=== PATIENT | male | born 1985 | race African-American/Black ===

== ENCOUNTER 2020-04-16 12:28 | Inpatient (IN) | payer OTHER ==
[2020-04-16] MEDS ORDERED: morphine SULFATE 4 MG/ML VIAL IVPUSH ONE (12:33)
[2020-04-16] MEDS ORDERED: SODIUM CHLORIDE 1,000 ML IV STA (12:33)
--- NOTE | 2020-04-16 12:33 | PDOC ---
Rapid Medical Evaluation Time Seen by Provider: 04/16/20 12:31 Medical Evaluation: 04/16/20 12:31 I have performed a brief in-person evaluation of this patient. CC: sent by PMD to r/o appendicitis PE: RLQ tenderness. No rebound. Orders: labs, urine, CTAP Patient will proceed to ED for further evaluation. Discharge Disposition - Diagnosis RLQ abdominal pain - Referrals Referrals: Marlo Dutton MD [Primary Care Provider] - - Patient Instructions - Post Discharge Activity
[2020-04-16] MEDS ORDERED: ONDANSETRON 4 MG/2 ML VIAL IVPUSH ONE (12:34)
--- NOTE | 2020-04-16 13:38 | PDOC ---
History of Present Illness - General Chief Complaint: Pain Stated Complaint: Pain Time Seen by Provider: 04/16/20 12:31 History Source: Patient Exam Limitations: Clinical Condition - History of Present Illness Travel History: No Initial Comments: 04/16/20 13:33 Patient with no significant past medical history present with complaint of one- week history of intermittent epigastric and periumbilical pain now worsened to right lower abdomen since yesterday. Patient described pain as cramping pain. Patient reportedly had no vomiting for 2 days which he took magnesium citrate yesterday which he had 3 bowel movement yesterday. Denies nausea, vomiting, fever, chills, diarrhea. Denies history of abdominal surgery. Denies blood or mucus in stool. Patient has not taken anything as of symptoms. Timing/Duration: reports: getting worse, other (1 week) Past History - Medical History Allergies/Adverse Reactions: Allergies Allergy/AdvReac Type Severity Reaction Status Date / Time No Known Allergies Allergy Unverified 04/16/20 12:36 Home Medications: Ambulatory Orders NK [No Known Home Medication] 04/16/20 COPD: No - Psycho-Social/Smoking History Smoking History: Never smoked Have you smoked in the past 12 months: No Information on smoking cessation initiated: No - Substance Abuse Hx (Audit-C & DAST Scrn) How often the patient has a drink containing alcohol: Never Score: In Men: 4 or > Positive; In Women: 3 or > Positive: 0 Screen Result (Pos requires Nsg. Audit-10AR): Negative In the last yr the pt used illegal drug/Rx for NonMed reason: No Score: Yes response is considered Positive: 0 Screen Result (Positive result requires Nsg. DAST-10): Negative Review of Systems - Review of Systems Able to Perform ROS?: Yes Is the patient limited Citizen Of [place] proficient: No Constitutional: No: Chills, Fever HEENTM: No: Symptoms Reported, See HPI, Eye Pain, Blurred Vision, Tearing, Recent change in vision, Double Vision, Cataracts, Ear Pain, Ocular Prothesis, Ear Discharge, Nose Pain, Nose Congestion, Tinnitus, Nose Bleeding, Hearing Loss, Throat Pain, Throat Swelling, Mouth Pain, Dental Problems, Difficulty Swallowing, Mouth Swelling, Other Respiratory: No: Symptoms reported, See HPI, Cough, Orthopnea, Shortness of Breath, SOB with Exertion, SOB at Rest, Stridor, Wheezing, Productive cough, Hemoptysis, Other Cardiac (ROS): No: Symptoms Reported, See HPI, Chest Pain, Edema, Irregular Heart Rate, Lightheadedness, Palpitations, Syncope, Chest Tightness, Other ABD/GI: Yes: Symptoms Reported, See HPI, Abdominal cramping (Right lower abdominal pain). No: Abdominal Distended, Blood Streaked Bowels, Constipated, D iarrhea, Difficulty Swallowing, Nausea, Rectal Bleeding, Vomiting, Indigestion, Tarry Stools : No: Symptoms Reported, Burning, Dysuria, Discharge, Frequency, Urgency, Testicular Mass, Testicular Swelling, Testicular Pain Integumentary: No: Symptoms Reported Neurological: No: Symptoms reported, Headache, Dizziness All Other Systems: Reviewed and Negative *Physical Exam - Vital Signs Last Vital Signs Temp Pulse Resp BP Pulse Ox 98.5 F 91 H 17 127/78 100 04/16/20 12:33 04/16/20 12:33 04/16/20 12:33 04/16/20 12:33 04/16/20 12:33 - Physical Exam 04/16/20 13:38 GENERAL: Well developed, well nourished. Awake and alert. No acute distress. HEENT: Normocephalic, atraumatic. PERRLA, EOMI. No conjunctival pallor. Sclera are non-icteric. Moist mucous membranes. Oropharynx is clear. NECK: Supple. Full ROM. CARDIOVASCULAR: Regular rate and rhythm. No murmurs, rubs, or gallops. Distal pulses are 2+ and symmetric. PULMONARY: No evidence of respiratory distress. Lungs clear to auscultation bilaterally. No wheezing, rales or rhonchi. ABDOMINAL: Soft. Moderate point tenderness to right lower quadrant. Non-distended. No rebound or guarding. No organomegaly. Normoactive bowel sounds. Negative Akhtar sign MUSCULOSKELETAL Normal range of motion at all joints. SKIN: Warm and dry. Normal capillary refill. No rashes. No jaundice. NEUROLOGICAL: Alert, awake, appropriate. Gait is normal without ataxia. PSYCHIATRIC: Cooperative. Good eye contact. Appropriate mood General Appearance: Yes: Nourished, Appropriately Dressed. No: Apparent Distress ED Treatment Course - LABORATORY CBC & Chemistry Diagram: 04/18/20 07:10 04/18/20 07:10 Medical Decision Making - Medical Decision Making 04/16/20 13:34 Patient with no significant past medical history present with complaint of one- week history of intermittent epigastric and periumbilical pain now worsened to right lower abdomen since yesterday. Patient described pain as cramping pain. Patient reportedly had no vomiting for 2 days which he took magnesium citrate yesterday which he had 3 bowel movement yesterday. Denies nausea, vomiting, fever, chills, diarrhea. Denies history of abdominal surgery. Denies blood or mucus in stool. Patient has not taken anything as of symptoms. Exam significant for moderate tenderness to right lower quadrant without guarding or rebound. Patient afebrile in no acute distress. Normal cardio and lung exam. Increase diffuse bowel sounds Symptoms likely appendicitis versus bowel gas pain. EKG shows no acute abnormality CBC, CMP and lipase lab ordered. Abdominal pelvic CT with IV contrast ordered to rule out appendicitis. Morphine IV ordered for pain and IV hydration with 1 L normal saline ordered. Treat based on lab and imaging results. 04/16/20 15:25 CBC shows no acute abnormality. Chemistry lab shows elevated potassium of 6. Contacted chemistry lab who reported specimen was hemolyzed. We will repeat chemistry lab. Patient pending abdominal pelvic CT. Patient reported improvement of pain and sitting comfortably. EKG done shows normal sinus rhythm with no acute abnormality 04/16/20 18:[address] shows appendicitis with likely early perforation. Called and spoke to general surgeon Dr. Whiteside who advised to admit patient for IV antibiotics and keep patient n.p.o. and will see patient in the morning for evaluation for possible appendectomy. Patient to be admitted to hospitalist for IV antibiotics pending surgeon evaluation in the morning 04/16/20 19:33 Spoke to resident hospitalist Dr. Cary who accepted patient for admission to Dr. Espinoza . Dr. Whiteside indicated he will schedule patient for 8 AM tomorrow for appendectomy Discharge - Discharge Information Problems reviewed: Yes Clinical Impression/Diagnosis: RLQ abdominal pain Appendicitis, acute Qualifiers: Acute appendicitis type: with localized peritonitis Appendicitis gangrene presence: without gangrene Appendicitis perforation presence: with perforation Appendicitis abscess presence: without abscess Qualified Code(s): K35.32 - Acute appendicitis with perforation and localized peritonitis, without abscess Condition: Stable Disposition: HOME - Admission Yes - Follow up/Referral - Patient Discharge Instructions - Post Discharge Activity
[2020-04-16] MEDS ORDERED: morphine SULFATE 4 MG/ML VIAL ONE (13:45)
[2020-04-16 14:27] LABS: BASO % 0.5 % (0-2.0); EOS % 0.4 % (0-4.5); HEMATOCRIT 43.9 % (35.4-49); HEMOGLOBIN 14.5 GM/dL (11.7-16.9); LYMPH % 23.8 % (8-40); MCH 30.6 pg (25.7-33.7); MEAN CELL VOLUME 92.7 fl (80-96); MEAN PLT VOLUME 9.8 fl (7.5-11.1); MONO % 12.4 % (3.8-10.2); NEUT % 62.9 % (42.8-82.8); PLATELET COUNT 221 K/MM3 (134-434); RBC 4.73 M/mm3 (4.00-5.60); RDW 13.6 % (11.9-15.9); WHITE BLOOD COUNT 9.2 K/mm3 (4.0-10.0)
[2020-04-16 14:34] LABS: INR 1.14 (0.83-1.09); PROTHROMBIN TIME (PATIENT) 13.5 SEC (9.7-13.0)
[2020-04-16 14:37] LABS: ACTIVATED PTT 30.8 SECONDS (25.2-36.5)
[2020-04-16 14:54] LABS: ALBUMIN 3.7 g/dl (3.4-5.0); BILIRUBIN,TOTAL 0.7 mg/dL (0.2-1); BLOOD UREA NITROGEN 9.4 mg/dL (7-18); CALCIUM 9.5 mg/dL (8.5-10.1); CREATININE 1.1 mg/dL (0.55-1.3); TOT PROT 8.3 g/dl (6.4-8.2)
[2020-04-16 15:02] LABS: POTASSIUM 6.2 mmol/L (3.5-5.1)
[2020-04-16] MEDS ORDERED: LACTATED RINGERS SOLUTION 1000 ML INFUS.BAG IV ONE (17:44)
[2020-04-16] MEDS ORDERED: LACTATED RINGERS SOLUTION 1,000 ML/1,000 ML INFUS.BAG IV SCH (18:30)
[2020-04-16] MEDS ORDERED: CEFAZOLIN 1 GM in DEXTROSE 5%-WATER - 50 ML IVPB SCH (18:30)
--- NOTE | 2020-04-16 19:32 | PN ---
Teaching Attending Note Name of Resident: Donald Cary ATTENDING PHYSICIAN STATEMENT I saw and evaluated the patient. I reviewed the resident's note and discussed the case with the resident. I agree with the resident's findings and plan as documented. SUBJECTIVE: Patient is a 34 year old man with no reported PMH who presents with a complaint of one-week of intermittent epigastric and periumbilical pain now worsened to right lower abdomen since yesterday. Describes pain as cramping. Took magnesium citrate yesterday which led to 3 bowel movement yesterdays. Denies nausea, vomiting, fever, chills, diarrhea, dysuria, melena or bloody stool. No history of abdominal surgery. Denies alcohol, tobacco or illicit drug use. No sick contacts or recent travels. Family history is unremarkable. OBJECTIVE: Alert Vital Signs Period Temp Pulse Resp BP Sys/Vazquez Pulse Ox Last 24 Hr 97.6 F-98.5 F 91-97 17-18 127-147/78-90 100-100 HEENT: No Jaundice, eye redness or discharge, PERRLA, EOMI. Normocephalic, atraumatic. External ears are normal and hearing is grossly intact. No nasal discharge. Neck: Supple, nontender. No palpable adenopathy or thyromegaly. No JVD Chest: Good effort. Clear to auscultation and percussion. Heart: Regular. No S3, rub or murmur Abdomen: Not distended, soft, RLQ tenderness and no HSM. No rebound or guarding. Normal bowel sounds. Ext: Peripheral pulses intact. No leg edema. Skin: Warm and dry. No petechiae, rash or ecchymosis. Neuro: Alert. Oriented x3. CN 2-12 grossly intact. Sensation grossly intact in all four extremities and DTR are symmetric. Psych: Appropriate mood and affect. Good insight. Home Medications Medication Instructions Recorded NK [No Known Home Medication] 04/16/20 Abnormal Lab Results 04/16/20 04/16/20 04/16/20 13:00 13:00 13:00 Monocytes % 12.4 H PT with INR 13.50 H INR 1.14 H Potassium 6.2 H* AST 75 H Total Protein 8.3 H Lipase 25 L Current Medications Generic Name Dose Route Start Last Admin Trade Name Freq PRN Reason Stop Dose Admin Lactated Ringer's 1,000 mls @ 100 mls/hr 04/16/20 21:00 04/16/20 21:30 Lactated Ringers Solution IV 100 mls/hr ASDIR ISABELLE Administration Piperacillin Sod/Tazobactam 50 mls @ 100 mls/hr 04/17/20 02:00 Sod 3.375 gm/ Dextrose IVPB Q8H-IV ISABELLE Protocol Piperacillin Sod/Tazobactam 50 mls @ 100 mls/hr 04/16/20 21:45 Sod 3.375 gm/ Dextrose IVPB 04/17/20 18:29 Q8H-IV ISABELLE Protocol ASSESSMENT AND PLAN: 1. Appendicitis with possible early perforation - CT scan of abdomen/pelvis with IV contrast shows appendicitis with possible early perforation. Hyperkalemia attributed to hemolysed sample - repeat BMP pending. ER staff consulted surgery. Patient being kept NPO and got IV Cefazolin and Flagyl in the ER. Will continue IV NS, IV Zosyn in view of possible perforation, and use IV Morphine for pain control. Viral testing for COVID-19 ordered and patient placed on airborne, droplet and contact isolation. EKG shows NSR at 90/minute, LVH and QTc [address]-T wave changes. 2. DVT prophylaxis - SCD. 3. Advance directives - Full code
[2020-04-16 20:05] LABS: ALBUMIN 3.6 g/dl (3.4-5.0); BILIRUBIN,TOTAL 0.7 mg/dL (0.2-1); BLOOD UREA NITROGEN 7.8 mg/dL (7-18); CALCIUM 9.1 mg/dL (8.5-10.1); POTASSIUM 4.2 mmol/L (3.5-5.1); TOT PROT 7.2 g/dl (6.4-8.2)
[2020-04-16] MEDS: LACTATED RINGERS SOLUTION 1,000 ML IV SCH (21:30)
[2020-04-16] MEDS: PIPERACILLIN/TAZOB 3.375 GM 3.375 GM in DEXTROSE 5%-WATER - 50 ML IVPB SCH (22:00)
--- NOTE | 2020-04-16 22:00 | CONSULT ---
- Consultation REQUESTING PROVIDER: Amy Coburn PA-C CONSULT REQUEST: We have been asked to surgically evaluate this patient for acute appendicitis PCP:Evelyn Espinoza MD HISTORY OF PRESENT ILLNESS: ERROL who is a 34 y/o male who presented with ? 6 days intermittent epigastric and periumbilical pain now localized to the right lower abdomen since . Patient described pain as cramping pain; worse w/movement and better w/lying still. No vomiting; he had no BM for 2 days; he took magnesium citrate yesterday which he had 3 bowel movement yesterday. Denies nausea, vomiting, fever, chills, diarrhea. PMHx: none PSHx: none Home Medications Medication Instructions Recorded NK [No Known Home Medication] 04/16/20 Allergies Allergy/AdvReac Type Severity Reaction Status Date / Time No Known Allergies Allergy Unverified 04/16/20 12:36 REVIEW OF SYSTEMS: CONSTITUTIONAL: Absent: fever, chills, diaphoresis, generalized weakness, malaise, loss of appetite, weight change CARDIOVASCULAR: Absent: chest pain, syncope, palpitations, irregular heart rate, lightheadedness, peripheral edema RESPIRATORY: Absent: cough, shortness of breath, dyspnea with exertion, wheezing, stridor, hemoptysis GASTROINTESTINAL: Absent: abdominal pain, abdominal distension, nausea, vomiting, diarrhea, constipation, melena, hematochezia GENITOURINARY: Absent: dysuria, frequency, urgency, hesitancy, hematuria, flank pain, genital pain MUSCULOSKELETAL: Absent: myalgia, arthralgia, joint swelling, back pain, neck pain SKIN: Absent: rash, itching, pallor HEMATOLOGIC/IMMUNOLOGIC: Absent: easy bleeding, easy bruising, lymphadenopathy NEUROLOGIC: Absent: headache, focal weakness, paresthesias, dizziness, unsteady gait, seizure, mental status changes, bladder or bowel incontinence PSYCHIATRIC: Absent: anxiety, depression, suicidal or homicidal ideation, hallucinations. PHYSICAL EXAM: GENERAL: Awake, alert, and fully oriented, in no acute distress. HEAD: Normal with no signs of trauma. EYES: PERRL, sclera anicteric, conjunctiva clear. NECK: Normal ROM, supple without lymphadenopathy, JVD, or masses. ABDOMEN: Soft, tender RLQ, not distended, normoactive bowel sounds, RLQ guarding, RLQ rebound, no masses. No organomegaly. No hernias; Rovsings; psoas and obturator signs are present. MUSCULOSKELETAL: Normal ROM at all joints. No bony deformities or tenderness. No CVA tenderness. UPPER EXTREMITIES: 2+ pulses, warm, well-perfused. No cyanosis. Cap refill <2 seconds. No peripheral edema. LOWER EXTREMITIES: 2+ pulses, warm, well-perfused. No calf tenderness. No peripheral edema. NEUROLOGICAL: Normal speech, gait not observed. PSYCH: Cooperative. Good eye contact. Appropriate mood and affect. SKIN: Warm, dry, normal turgor, no rashes or lesions noted. Vital Signs Temperature 98.1 F 04/16/20 19:55 Pulse Rate 86 04/16/20 19:55 Respiratory Rate 18 04/16/20 19:55 Blood Pressure 136/77 04/16/20 19:55 O2 Sat by Pulse Oximetry (%) 100 04/16/20 19:55 Lab Results WBC 9.2 K/mm3 (4.0-10.0) 04/16/20 13:00 RBC 4.73 M/mm3 (4.00-5.60) 04/16/20 13:00 Hgb 14.5 GM/dL (11.7-16.9) 04/16/20 13:00 Hct 43.9 % (35.4-49) 04/16/20 13:00 MCV 92.7 fl (80-96) 04/16/20 13:00 MCHC 33.0 g/dl (32.0-35.9) 04/16/20 13:00 RDW 13.6 % (11.9-15.9) 04/16/20 13:00 Plt Count 221 K/MM3 (134-434) 04/16/20 13:00 INR 1.14 (0.83-1.09) H 04/16/20 13:00 Sodium 141 mmol/L (136-145) 04/16/20 19:30 Potassium 4.2 mmol/L (3.5-5.1) 04/16/20 19:30 Chloride 105 mmol/L (98-107) 04/16/20 19:30 Carbon Dioxide 27 mmol/L (21-32) 04/16/20 19:30 Anion Gap 10 MMOL/L (8-16) 04/16/20 19:30 BUN 7.8 mg/dL (7-18) 04/16/20 19:30 Creatinine 1.0 mg/dL (0.55-1.3) 04/16/20 19:30 Random Glucose 92 mg/dL (74-106) 04/16/20 19:30 Calcium 9.1 mg/dL (8.5-10.1) 04/16/20 19:30 Blood Type O POSITIVE 04/16/20 13:00 Antibody Screen Negative 04/16/20 13:00 CT a/p images and report reviewed IMP: acute appendicitis PLAN: Lap appendectomy possible open; r/b/t/a's d/w the patient and informed consent obtained. El Whiteside MD FACS
[2020-04-16] MEDS ORDERED: PIPERACILLIN/TAZOBACTAM 3.375 GM VIAL IVPB ONE (22:03)
[2020-04-16] MEDS ORDERED: DEXTROSE 5%-WATER - 50 ML IVPB ONE (22:04)
--- NOTE | 2020-04-16 22:14 | HP ---
Admitting History and Physical - Admission Chief Complaint: maría elena farias came to my office today c/o abd pain scale 6 rlq 2 days. ? nasea no other complaintspmh neg no medds. pt admitted to [facility] History Source: Patient Limitations to Obtaining History: No Limitations - Past Medical History Gastrointestinal: Yes: Other (rlq pain) - Past Surgical History Past Surgical History: Yes: None - Smoking History Smoking history: Never smoked Have you smoked in the past 12 months: No - Alcohol/Substance Use Hx Alcohol Use: No History of Substance Use: reports: None - Social History Usual Living Arrangement: Yes: Alone History of Recent Travel: No Home Medications - Allergies Allergies/Adverse Reactions: Allergies Allergy/AdvReac Type Severity Reaction Status Date / Time No Known Allergies Allergy Unverified 04/16/20 12:36 - Home Medications Home Medications: Ambulatory Orders NK [No Known Home Medication] 04/16/20 Family Medical History Family History: Unremarkable Review of Systems - Review of Systems Constitutional: reports: Other (rlq pain scale6) HENT: reports: No Symptoms Cardiovascular: reports: No Symptoms Respiratory: reports: No Symptoms Gastrointestinal: reports: Nausea, Other (ruq pain) Genitourinary: reports: No Symptoms Breasts: reports: No Symptoms Reported Musculoskeletal: reports: No Symptoms Integumentary: reports: No Symptoms Neurological: reports: No Symptoms Endocrine: reports: No Symptoms Hematology/Lymphatic: reports: No Symptoms Psychiatric: reports: No Symptoms Physical Examination Vital Signs: Vital Signs Temperature 98.1 F 04/16/20 19:55 Pulse Rate 86 04/16/20 19:55 Respiratory Rate 18 04/16/20 19:55 Blood Pressure 136/77 04/16/20 19:55 O2 Sat by Pulse Oximetry (%) 100 04/16/20 19:55 Constitutional: Yes: Well Nourished Eyes: Yes: WNL HENT: Yes: WNL Neck: Yes: WNL Cardiovascular: Yes: WNL Respiratory: Yes: WNL Gastrointestinal: Yes: Tenderness ...Rectal Exam: Yes: Deferred Renal/: Yes: WNL Breast(s): Yes: WNL Musculoskeletal: Yes: WNL Extremities: Yes: WNL Edema: No Integumentary: Yes: WNL Neurological: Yes: WNL Labs: CBC, BMP 04/16/20 13:00 04/16/20 19:30 Assessment/Plan cont atbx nposx consult npo labs in am tylenol for tgemps
[2020-04-17 00:04] VITALS: BMI 28.6
[2020-04-17] MEDS ORDERED: PIPERACILLIN/TAZOBACTAM 3.375 GM VIAL IVPB ONE ×2 (01:36→08:34)
[2020-04-17] MEDS ORDERED: DEXTROSE 5%-WATER - 50 ML IVPB ONE ×2 (01:36→08:34)
[2020-04-17] MEDS: PIPERACILLIN/TAZOB 3.375 GM 3.375 GM in DEXTROSE 5%-WATER - 50 ML IVPB SCH ×3 (01:38→13:38)
[2020-04-17] MEDS: LACTATED RINGERS SOLUTION 1,000 ML IV SCH (06:15)
[2020-04-17 07:57] LABS: BASO % 0.9 % (0-2.0); EOS % 1.4 % (0-4.5); HEMATOCRIT 39.7 % (35.4-49); HEMOGLOBIN 13.1 GM/dL (11.7-16.9); LYMPH % 34.8 % (8-40); MCH 30.5 pg (25.7-33.7); MEAN CELL VOLUME 92.4 fl (80-96); MEAN PLT VOLUME 9.5 fl (7.5-11.1); MONO % 11.8 % (3.8-10.2); NEUT % 51.1 % (42.8-82.8); PLATELET COUNT 201 K/MM3 (134-434); RDW 13.5 % (11.9-15.9); WHITE BLOOD COUNT 5.5 K/mm3 (4.0-10.0)
[2020-04-17 08:20] LABS: ALBUMIN 3.3 g/dl (3.4-5.0); CALCIUM 8.9 mg/dL (8.5-10.1); MAGNESIUM 2.3 mg/dL (1.8-2.4); PHOSPHOROUS 4.1 mg/dL (2.5-4.9); POTASSIUM 4.1 mmol/L (3.5-5.1); TOT PROT 6.8 g/dl (6.4-8.2)
[2020-04-17 08:35] LABS: BILIRUBIN,TOTAL 0.9 mg/dL (0.2-1)
[2020-04-17] MEDS ORDERED: ACETAMINOPHEN 1000 MG/100 ML VIAL (NON FORMULARY) IVPB PRN ×2 (08:56→12:06)
[2020-04-17 09:26] LABS: PH,URINE 7.5 (5.0-8.0); URINE APPEARANCE CLEAR; URINE BILIRUBIN NEGATIVE (NEGATIVE); URINE COLOR YELLOW; URINE GLUCOSE (UA) NEGATIVE (NEGATIVE); URINE KETONE NEGATIVE (NEGATIVE); URINE LEUK ESTERASE NEGATIVE (NEGATIVE); URINE NITRITE NEGATIVE (NEGATIVE); URINE PROTEIN NEGATIVE (NEGATIVE); URINE UROBILINOGEN 0.2 mg/dL (0.2-1.0)
[2020-04-17] MEDS ORDERED: ONDANSETRON 4 MG/2 ML VIAL IVPUSH PRN ×3 (10:18→12:12)
[2020-04-17] MEDS ORDERED: SEVOFLURANE 250 ML BTL ONE (10:29)
[2020-04-17] MEDS ORDERED: LACTATED RINGERS SOLUTION 1,000 ML IV SCH ×2 (10:30→12:11)
[2020-04-17] MEDS ORDERED: PROPOFOL 20 ML ONE (10:31)
[2020-04-17] MEDS ORDERED: MIDAZOLAM HCL 2 MG/2 ML SINGLE DOSE VIAL ONE (10:31)
[2020-04-17] MEDS ORDERED: SUCCINYLCHOLINE CHLORIDE 200 MG/10 ML SYRINGE ONE (10:31)
[2020-04-17] MEDS ORDERED: ROCURONIUM BROMIDE 50 MG/5 ML SYRINGE ONE (10:46)
[2020-04-17] MEDS ORDERED: BUPIVACAINE HCL/PF 0.5% (5MG/ML) 10 ML VIAL IJ ONE (11:26)
[2020-04-17] MEDS ORDERED: DEXAMETHASONE SOD PHOSPHATE 4 MG/1 ML VIAL ONE (11:28)
[2020-04-17] MEDS ORDERED: NEOSTIGMINE METHYLSULFATE 0.5 MG/ML - 10 ML MDV ONE (11:28)
[2020-04-17] MEDS ORDERED: GLYCOPYRROLATE 0.2 MG/1 ML VIAL ONE (11:30)
[2020-04-17] MEDS ORDERED: KETOROLAC TROMETHAMINE 30 MG/1 ML VIAL ONE (11:34)
--- NOTE | 2020-04-17 11:41 | OP ---
Operative Note - Note: Operative Date: 04/17/20 Pre-Operative Diagnosis: acute appendicitis Operation: laparoscopic appendectomy Findings: acute suppurative appendicitis Post-Operative Diagnosis: Same as Pre-op Surgeon: El Whiteside Show Girl: Alyce Aragon Anesthesiologist/TELEVISION WRITER: Tata Cadet Anesthesia: General Specimens Removed: appendix Estimated Blood Loss (mls): 15 Drains & Tubes with Location: none
[2020-04-17] MEDS ORDERED: oxyCODONE HCL 5 MG TABLET PO PRN ×2 (12:05)
--- NOTE | 2020-04-17 12:09 | SURG ---
Surgery Inspector And [employer]er [employer] Note Inspector And [employer]er [employer]: Alyce Aragon PA-C Date of Service: 04/17/20 Diagnosis: acute appendicitis Procedure: laparoscopic appendectomy I was present for the entirety of the operative procedure. For further detail, please refer to operative report. Visit type - Case Type Case Type: Scheduled - Emergency Emergency Visit: Yes ED Registration Date: 04/16/20 Care time: The patient presented to the Emergency Department on the above date and was hospitalized for further evaluation of their emergent condition. - New patient This patient is new to me today: Yes Date on this admission: 04/17/20
[2020-04-17] MEDS ORDERED: ACETAMINOPHEN INJECTION 100 ML IVPB ONE (12:21)
--- NOTE | 2020-04-17 15:05 | EKG ---
Test Reason : Blood Pressure : / mmHG Vent. Rate : 090 BPM Atrial Rate : 090 BPM P-R Int : 162 ms QRS Dur : 074 ms QT Int : 350 ms P-R-T Axes : 056 028 043 degrees QTc Int : 428 ms NORMAL SINUS RHYTHM MODERATE VOLTAGE CRITERIA FOR LVH, MAY BE NORMAL VARIANT BORDERLINE ECG NO PREVIOUS ECGS AVAILABLE Confirmed by KARLEE HOWARD MD ([id number]) on 04/17/2020 3:04:52 PM Referred By: Confirmed By:KARLEE HOWARD MD
[2020-04-17] MEDS: KETOROLAC TROMETHAMINE 30 MG/1 ML VIAL IVPUSH SCH (17:02)
--- NOTE | 2020-04-17 18:00 | PN ---
Progress Note, Physician Chief Complaint: Acute appendicitis History of Present Illness: 34 year old man with no reported PMH who presents with a complaint of one-week of intermittent epigastric and periumbilical pain now worsened to right lower abdomen since yesterday. Describes pain as cramping. Took magnesium citrate yesterday which led to 3 bowel movement yesterdays. Denies nausea, vomiting, fever, chills, diarrhea, dysuria, melena or bloody stool. No history of abdominal surgery. Denies alcohol, tobacco or illicit drug use. No sick contacts or recent travels. Family history is unremarkable. - Current Medication List Current Medications: Active Medications Acetaminophen (Ofirmev Injection -) 1,000 mg IVPB Q6H PRN PRN Reason: PAIN LEVEL 4 - 6 Stop: 04/18/20 08:55 Last Admin: 04/17/20 12:25 Dose: 1,000 mg Documented by: Heparin Sodium (Porcine) (Heparin -) 5,000 unit SQ TID ISABELLE Lactated Ringer's (Lactated Ringers Solution) 1,000 mls @ 125 mls/hr IV ASDIR ISABELLE Last Admin: 04/17/20 13:35 Dose: 125 mls/hr Documented by: Ketorolac Tromethamine (Toradol Injection -) 30 mg IVPUSH Q8H-IV ISABELLE Stop: 04/22/20 17:59 Last Admin: 04/17/20 17:02 Dose: 30 mg Documented by: Ondansetron HCl (Zofran Injection) 4 mg IVPUSH Q8H PRN PRN Reason: NAUSEA Ondansetron HCl (Zofran Injection) 4 mg IVPUSH Q6H PRN PRN Reason: NAUSEA AND/OR VOMITING Stop: 04/18/20 10:17 Oxycodone HCl (Roxicodone -) 5 mg PO Q6H PRN PRN Reason: PAIN LEVEL 1-3 Oxycodone HCl (Roxicodone -) 10 mg PO Q6H PRN PRN Reason: PAIN LEVEL 7-10 - Objective Vital Signs: Vital Signs Temperature 97.5 F L 04/17/20 14:00 Pulse Rate 78 04/17/20 14:00 Respiratory Rate 18 04/17/20 14:00 Blood Pressure 124/65 04/17/20 14:00 O2 Sat by Pulse Oximetry (%) 99 04/17/20 13:15 Constitutional: Yes: Well Nourished, No Distress, Calm Eyes: Yes: WNL, Conjunctiva Clear, EOM Intact HENT: Yes: WNL, Atraumatic, Normocephalic Neck: Yes: WNL, Supple, Trachea Midline Cardiovascular: Yes: WNL, Regular Rate and Rhythm Respiratory: Yes: WNL, Regular, CTA Bilaterally Gastrointestinal: Yes: WNL, Normal Bowel Sounds, Soft Musculoskeletal: Yes: WNL Extremities: Yes: WNL Edema: No Peripheral Pulses WNL: Yes Integumentary: Yes: WNL Neurological: Yes: WNL, Alert, Oriented ...Motor Strength: WNL Psychiatric: Yes: Alert, Oriented Labs: CBC, BMP 04/17/20 06:00 04/17/20 06:00 INR, PTT INR 1.14 (0.83-1.09) H 04/16/20 13:00 Impression/Plan Impression/Plan: ASSESSMENT AND PLAN: 1. Appendicitis - CT scan of abdomen/pelvis with IV contrast shows appendicitis with possible early perforation. s/p NPO and got IV Cefazolin and Flagyl in the ER. Appreciate surgery management s/p lap Append tolerated procedure well without side effects Advance diet as tolerates 2. DVT prophylaxis - SCD. 3. Advance directives - Full code Visit type - Emergency Visit Emergency Visit: Yes ED Registration Date: 04/16/20 Care time: The patient presented to the Emergency Department on the above date and was hospitalized for further evaluation of their emergent condition. - New Patient This patient is new to me today: Yes Date on this admission: 04/17/20 - Critical Care Critical Care patient: No - Discharge Referral Referred to [facility] No
--- NOTE | 2020-04-17 18:07 | CON.ID ---
Consult - History of Present Illness History of Present Illness: 34 y.o. male with no PMH was sent from PMD's office for c/o abd pain for almost a week. States initially started in mid-abdominal region and then extended to RLQ and described it as cramping. In the ER, pt was afebrile with stable vitals, normal cbc. CT scan revealed acute appendicitis with possible early perforation. Pt was started on Zosyn IV empirically. He is now s/p Lap Appendectomy today. States he feels well. Remains afebrile. Sitting in chair and tolerating diet. Denies n/v. Abd pain is controlled on Oxycodone. He has no specific complaints at this time. - History Source History Provided By: Patient Limitations to Obtaining History: No Limitations - Past Medical History DENTAL MECHANIC: No: Alzheimer's, CVA, Dementia, Migraine, Multiple Sclerosis, Peripheral Neuropathy, Parkinson's, Seizure, Syncope, TIA, Vertigo, Other Cardio/Vascular: No: AFIB, Aneurysm, Aortic Insufficiency, Aortic Stenosis, CAD, CHF, Deep Vein Thrombosis, HTN, Hyperlipdemia, SC, Mitral Insufficiency, Mitral Stenosis, Murmur, Pulmonary Hypertension, Other Pulmonary: No: Asthma, Bronchitis, Cancer, COPD, O2 Dependent, Pneumonia, Previously Intubated, Pulmonary Embolus, Pulmonary Fibrosis, Sleep Apnea, Other Gastrointestinal: Yes: Other (rlq pain). No: Ascites, Cancer, Constipation, Crohn's Disease, Diverticulitis, Diverticulosis, Esophageal Varices, Gastritis, GERD, GI Bleed, Hemorrhoids, Hiatal Hernia, Inflamatory Bowel Disease, Irritable Bowel Disease, Pancreatitis, Peptic Ulcer Disease, Ulcerative Colitis Hepatobiliary: No: Cirrhosis, Cholelithiasis, Cholecystitis, Choledocholithiasis, Hepatitis A, Hepatitis B, Hepatitis C, Other Renal/: No: Renal Failure, Renal Inusuff, BPH, Cancer, Hematuria, Hemodialysis, Neurogenic Bladder, Renal Calculi, UTI, Other Heme/Onc: No: Anemia, B12 Deficiency, Bleeding Disorder, Cancer, Current Chemotherapy, Current Radiation Therapy, Hemochromatosis, Hypercoaguable State, Myeloproliferative Synd, Sickle Cell Disease, Sickle Cell Trait, Thrombocytopenia, Other Infectious Disease: No: AIDS, C-Diff, Herpes Zoster, HIV, MRSA, STD's, Tubercul osis, VREF, Other Psych: No: Addictions, Anxiety, Bipolar, Depression, Panic, Psychosis, Schizophrenia, Other Musculoskeletal: No: Bursitis, Chronic low back pain, Hemiparesis, Hemiplegia, Osteoarthritis, Paraplegia, Other Rheumatology: No: Fibromyalgia, Gout, Lupus, Rheumatoid Arthritis, Sarcoidosis, Vasculitis, Other ENT: No: Allergic Rhinitis, Sinusitis, Other Endocrine: No: Arthur's Disease, Jim's Disease, Diabetes Insipidus, Diabetes Mellitus, Hyperparathyroidism, Hyperthyroidism, Hypothyroidism, Osteopenia, SIADH, Other Dermatology: No: Basal Cell, Cellulitis, Eczema, Melanoma, Psoriasis, Squamous Cell, Other - Past Surgical History Past Surgical History: Yes: None - Alcohol/Substance Use Hx Alcohol Use: No History of Substance Use: reports: None - Smoking History Smoking history: Never smoked Have you smoked in the past 12 months: No - Social History History of Recent Travel: No Home Medications - Allergies Allergies/Adverse Reactions: Allergies Allergy/AdvReac Type Severity Reaction Status Date / Time No Known Allergies Allergy Unverified 04/16/20 12:36 - Home Medications Home Medications: Ambulatory Orders NK [No Known Home Medication] 04/16/20 Review of Systems - Review of Systems Constitutional: reports: No Symptoms Eyes: reports: No Symptoms HENT: reports: No Symptoms Neck: reports: No Symptoms Cardiovascular: reports: No Symptoms Respiratory: reports: No Symptoms Gastrointestinal: reports: No Symptoms Genitourinary: reports: No Symptoms Breasts: reports: No Symptoms Reported Musculoskeletal: reports: No Symptoms Integumentary: reports: No Symptoms Neurological: reports: No Symptoms Endocrine: reports: No Symptoms Hematology/Lymphatic: reports: No Symptoms Psychiatric: reports: No Symptoms Physical Exam Vital Signs: Vital Signs Temperature 97.5 F L 04/17/20 14:00 Pulse Rate 78 04/17/20 14:00 Respiratory Rate 18 04/17/20 14:00 Blood Pressure 124/65 04/17/20 14:00 O2 Sat by Pulse Oximetry (%) 99 04/17/20 13:15 Constitutional: Yes: Well Nourished, No Distress, Calm Eyes: Yes: Conjunctiva Clear, EOM Intact HENT: Yes: Atraumatic, Normocephalic Neck: Yes: Supple Cardiovascular: Yes: Regular Rate and Rhythm Respiratory: Yes: CTA Bilaterally Gastrointestinal: Yes: Soft, Hypoactive Bowel Sounds (slightly) Renal/: Yes: WNL Musculoskeletal: Yes: WNL Extremities: Yes: WNL Peripheral Pulses WNL: Yes Integumentary: Yes: WNL Wound/Incision: Yes: Dressing Dry and Intact Neurological: Yes: Alert, Oriented Labs: CBC, BMP 04/17/20 06:00 04/17/20 06:00 Laboratory Tests 04/16/20 04/16/20 04/16/20 13:00 13:00 13:00 WBC 9.2 RBC 4.73 Hgb 14.5 Hct 43.9 MCV 92.7 MCH 30.6 MCHC 33.0 RDW 13.6 Plt Count 221 MPV 9.8 Absolute Neuts (auto) 5.8 Neutrophils % 62.9 Lymphocytes % 23.8 Monocytes % 12.4 H Eosinophils % 0.4 Basophils % 0.5 Nucleated RBC % 0 PT with INR 13.50 H INR 1.14 H PTT (Actin FS) 30.8 Sodium 136 Potassium 6.2 H* Chloride 102 Carbon Dioxide 27 Anion Gap 8 BUN 9.4 Creatinine 1.1 Est GFR (CKD-EPI)AfAm 99.57 Est GFR (CKD-EPI)NonAf 85.91 Random Glucose 80 Calcium 9.5 Phosphorus Magnesium Total Bilirubin 0.7 AST 75 H ALT 39 Alkaline Phosphatase 54 Total Protein 8.3 H Albumin 3.7 Lipase 25 L Urine Color Urine Appearance Urine pH Ur Specific [place] Urine Protein Urine Glucose (UA) Urine Ketones Urine Blood Urine Nitrite Urine Bilirubin Urine Urobilinogen Ur Leukocyte Esterase Blood Type Antibody Screen 04/16/20 04/16/20 04/17/20 13:00 19:30 06:00 WBC 5.5 RBC 4.30 Hgb 13.1 Hct 39.7 MCV 92.4 MCH 30.5 MCHC 33.0 RDW 13.5 Plt Count 201 MPV 9.5 Absolute Neuts (auto) 2.8 Neutrophils % 51.1 Lymphocytes % 34.8 D Monocytes % 11.8 H Eosinophils % 1.4 D Basophils % 0.9 Nucleated RBC % 0 PT with INR INR PTT (Actin FS) Sodium 141 Potassium 4.2 Chloride 105 Carbon Dioxide 27 Anion Gap 10 BUN 7.8 Creatinine 1.0 Est GFR (CKD-EPI)AfAm 111.73 Est GFR (CKD-EPI)NonAf 96.40 Random Glucose 92 Calcium 9.1 Phosphorus Magnesium Total Bilirubin 0.7 AST 16 ALT 31 Alkaline Phosphatase 52 Total Protein 7.2 Albumin 3.6 Lipase Urine Color Urine Appearance Urine pH Ur Specific [place] Urine Protein Urine Glucose (UA) Urine Ketones Urine Blood Urine Nitrite Urine Bilirubin Urine Urobilinogen Ur Leukocyte Esterase Blood Type O POSITIVE Antibody Screen Negative 04/17/20 04/17/20 06:00 06:30 WBC RBC Hgb Hct MCV MCH MCHC RDW Plt Count MPV Absolute Neuts (auto) Neutrophils % Lymphocytes % Monocytes % Eosinophils % Basophils % Nucleated RBC % PT with INR INR PTT (Actin FS) Sodium 141 Potassium 4.1 Chloride 106 Carbon Dioxide 29 Anion Gap 6 L BUN 8.0 Creatinine 1.0 Est GFR (CKD-EPI)AfAm 111.73 Est GFR (CKD-EPI)NonAf 96.40 Random Glucose 80 Calcium 8.9 Phosphorus 4.1 Magnesium 2.3 Total Bilirubin 0.9 AST 12 L ALT 26 Alkaline Phosphatase 47 Total Protein 6.8 Albumin 3.3 L Lipase Urine Color Yellow Urine Appearance Clear Urine pH 7.5 Ur Specific [place] 1.012 Urine Protein Negative Urine Glucose (UA) Negative Urine Ketones Negative Urine Blood Negative Urine Nitrite Negative Urine Bilirubin Negative Urine Urobilinogen 0.2 Ur Leukocyte Esterase Negative Blood Type Antibody Screen Imaging - Results Cat Scan: Report Reviewed Problem List - Problems (1) Appendicitis, acute Code(s): K35.80 - UNSPECIFIED ACUTE APPENDICITIS Qualifiers: Acute appendicitis type: with localized peritonitis Appendicitis gangrene presence: without gangrene Appendicitis perforation presence: with perforation Appendicitis abscess presence: without abscess Qualified Code(s): K35.32 - Acute appendicitis with perforation and localized peritonitis, without abscess Assessment/Plan Acute Appendicitis s/p Lap Appendectomy POD#0 -- Pt is doing very well post-op/ remains afebrile, tolerating diet -- s/p doses of antibiotics since yesterday -- No significant intra-op findings concerning for perforation/abscess as per Surgery. Antibiotics d/c'd. -- monitor closely Thank you
[2020-04-17] MEDS: HEPARIN NA (PORCINE) 5,000 UNITS/ML 1ML VIAL SQ SCH (21:28)
[2020-04-18] MEDS: KETOROLAC TROMETHAMINE 30 MG/1 ML VIAL IVPUSH SCH ×2 (01:01→09:06)
[2020-04-18] MEDS: HEPARIN NA (PORCINE) 5,000 UNITS/ML 1ML VIAL SQ SCH (05:10)
[2020-04-18 06:24] VITALS: BP 117/68; PULSE 66; TEMP 97.4
[2020-04-18 08:37] LABS: HEMATOCRIT 38.2 % (35.4-49); HEMOGLOBIN 12.6 GM/dL (11.7-16.9); MCH 30.2 pg (25.7-33.7); MCHC 32.9 g/dl (32.0-35.9); MEAN CELL VOLUME 91.7 fl (80-96); MEAN PLT VOLUME 9.4 fl (7.5-11.1); PLATELET COUNT 216 K/MM3 (134-434); RBC 4.16 M/mm3 (4.00-5.60); WHITE BLOOD COUNT 9.2 K/mm3 (4.0-10.0)
[2020-04-18 09:02] LABS: BLOOD UREA NITROGEN 8.7 mg/dL (7-18); CALCIUM 9.1 mg/dL (8.5-10.1); CREATININE 0.9 mg/dL (0.55-1.3)
--- NOTE | 2020-04-18 10:23 | PN ---
Progress Note, Physician History of Present Illness: i seen pt in recovery yesterday doing well post toleratede procedure well awake vss today tolerating diet ? advance ?d/c today or in am no bm yet pain down significantly vss - Current Medication List Current Medications: Active Medications Heparin Sodium (Porcine) (Heparin -) 5,000 unit SQ TID [facility] Last Admin: 04/18/20 05:10 Dose: 5,000 unit Documented by: Lactated Ringer's (Lactated Ringers Solution) 1,000 mls @ 125 mls/hr IV ASDIR [facility] Last Admin: 04/17/20 13:35 Dose: 125 mls/hr Documented by: Ketorolac Tromethamine (Toradol Injection -) 30 mg IVPUSH Q8H-IV ISABELLE Stop: 04/22/20 17:59 Last Admin: 04/18/20 09:06 Dose: 30 mg Documented by: Ondansetron HCl (Zofran Injection) 4 mg IVPUSH Q8H PRN PRN Reason: NAUSEA Oxycodone HCl (Roxicodone -) 5 mg PO Q6H PRN PRN Reason: PAIN LEVEL 1-3 Oxycodone HCl (Roxicodone -) 10 mg PO Q6H PRN PRN Reason: PAIN LEVEL 7-10 - Objective Vital Signs: Vital Signs Temperature 97.4 F L 04/18/20 06:00 Pulse Rate 66 04/18/20 06:00 Respiratory Rate 18 04/18/20 09:00 Blood Pressure 117/68 04/18/20 06:00 O2 Sat by Pulse Oximetry (%) 99 04/18/20 09:00 Constitutional: Yes: Well Nourished, No Distress Eyes: Yes: WNL HENT: Yes: WNL Neck: Yes: WNL Cardiovascular: Yes: WNL, S2 Gastrointestinal: Yes: Hypoactive Bowel Sounds ...Rectal Exam: Yes: Deferred Genitourinary: Yes: WNL Breast(s): Yes: WNL Musculoskeletal: Yes: WNL Extremities: Yes: WNL Edema: No Peripheral Pulses WNL: Yes Integumentary: Yes: WNL Wound/Incision: Yes: Clean/Dry Neurological: Yes: WNL ...Motor Strength: WNL Psychiatric: Yes: WNL Labs: CBC, BMP 04/18/20 07:10 04/18/20 07:10 INR, PTT INR 1.14 (0.83-1.09) H 04/16/20 13:00 Assessment/Plan ?advance diet ?d/c today or am ?po antibioticsd out pt appt w me in 3 days f/u w dr burch out pt if d/c today oob
--- NOTE | 2020-04-18 10:25 | PN ---
Progress Note (short form) - Note Progress Note: Attending Surgeon POD #1 No c/o; tolerated diet; passing flatus VSS AF abdo-soft; port site tenderness only; port sites c/d/i; o/w negative. WBC 9.2 IMP: doing well post op PLAN: Regular diet and discharge home to office f/u next week. El Whiteside MD FACS
--- NOTE | 2020-04-18 10:26 | DS ---
Physical Examination Vital Signs: Vital Signs Temperature 97.4 F L 04/18/20 06:00 Pulse Rate 66 04/18/20 06:00 Respiratory Rate 18 04/18/20 09:00 Blood Pressure 117/68 04/18/20 06:00 O2 Sat by Pulse Oximetry (%) 99 04/18/20 09:00 Constitutional: Yes: Well Nourished Eyes: Yes: WNL HENT: Yes: WNL Neck: Yes: WNL Cardiovascular: Yes: WNL Respiratory: Yes: WNL Gastrointestinal: Yes: Hypoactive Bowel Sounds ...Rectal Exam: Yes: Deferred Renal/: Yes: WNL Breast(s): Yes: WNL Musculoskeletal: Yes: WNL Extremities: Yes: WNL Edema: No Peripheral Pulses WNL: Yes Integumentary: Yes: WNL Wound/Incision: Yes: Clean/Dry Neurological: Yes: WNL ...Motor Strength: WNL Psychiatric: Yes: WNL Labs: CBC, BMP 04/18/20 07:10 04/18/20 07:10 Discharge Summary Problems reviewed: Yes Reason For Visit: ACUTE APPENDICITIS Current Active Problems Appendicitis, acute (Acute) RLQ abdominal pain (Acute) Condition: Stable - Instructions Diet, Activity, Other Instructions: Dr. Whiteside Discharge Instructions Dear JESS CALDERA, Post Operative Instructions Physical activity Resume your normal everyday activity as tolerated no heavy lifting or exercise until seen by your surgeon. You may walk unlimited amounts of and climb stairs. You may resume driving the car when you feel safe and comfortable behind the wheel. Wound care If you have a bandage, leave it on, and keep dry for 48 - 72 hours. After that time discard the outer bandage. If there are tapes on the skin under the outer bandage, leave them in place. They will peel off in the next 7 to 10 days. Do No t peel them off. You may shower 2 days after surgery. If there are tapes present on the skin, they can get wet. Diet There are no dietary restrictions. Eat healthy, high-fiber foods. Drink 6 to 8 glasses of liquid each day. This will assist in keeping your bowels are regular. Pain management You may take Tylenol or acetaminophen or Ibuprofen (for example, Motrin, Advil etc.) Any pain prescription medication ordered should be taken as prescribed for moderate to severe pain. Call Dr. Whiteside for any of the following: Severe pain not relieved by medication Fever of 101 or higher Excessive bleeding or drainage on dressing Inability to urinate Call the office at [phone] or [phone] for a post operative appointment in 7 - 10 days. Disposition: HOME - Home Medications Comprehensive Discharge Medication List: Ambulatory Orders NK [No Known Home Medication] 04/16/20
--- NOTE | 2020-04-20 09:57 | OP ---
DATE OF OPERATION: 04/17/2020 PREOPERATIVE DIAGNOSIS: Acute appendicitis. POSTOPERATIVE DIAGNOSIS: Acute appendicitis. PROCEDURE: Laparoscopic appendectomy. SURGEON: El Whiteside MD [employer] PROFESSOR: Alyce Aragon PA-C ANESTHESIA: General. OPERATIVE FINDINGS: Acute suppurative appendicitis. The rest of the findings were unremarkable. DETAILS OF PROCEDURE: The patient was placed on the operating room table in the supine position, and after induction of general anesthesia and placement of a Bowers catheter, the patient's abdomen was prepped with ChloraPrep and draped in sterile fashion. A timeout was taken, and pneumoperitoneum established at the umbilicus, using a Veress needle to an intraabdominal pressure of 15 mmHg. Next, a 12-mm suprapubic port just to the left of the midline was placed without incident, and then a left lower quadrant 5-mm port. The patient was placed in the head-down position and rotated to the left and laparoscopy carried out and previously noted findings were observed. The appendix was grasped and using blunt dissection and the LigaSure device mobilized from the lateral abdominal wall. The mesoappendix was serially divided using the LigaSure device as well. Once the base of the appendix was identified at the confluence of the 3 tinea on the cecum, a 60-mm Endo STEVAN purple load stapler was placed across the base of the appendix and fired. The appendix was then placed in an EndoCatch and brought up to the abdominal wall at the 12-mm port site. The suture line was inspected for hemostasis and/or leak, and there was found to be none. The appendix was then removed with the 12-mm port, and sent the pathological examination. The 12-mm port was replaced and pneumoperitoneum reestablished, and hemostasis checked for and noted to be good. At this point, the two 5-mm ports and the 12-mm port were removed, and the pneumoperitoneum evacuated. The defect at the suprapubic port site was closed with a single [id number] 0 Vicryl suture, and the port sites were injected with 0.5% Marcaine. The skin edges were reapproximated with interrupted 4-0 Biosyn followed by Steri-Strips and Band-Aid dressings. The patient was then aroused from anesthesia and prior to this the Bowers catheter removed, and the patient transferred to post anesthesia care unit in stable condition awake and alert. Estimated blood loss: 15 mL. Replacement: crystalloid. Drains: none. Specimen: appendix to pathology. I, El Whiteside MD, was physically present in the operating room from the time the patient was placed on the operating room table until patient was transferred to the postanesthesia care unit in my accompaniment. El Whiteside MD [id number] MTDD
--- NOTE | 2020-04-20 12:55 | PATH ---
Surgical Pathology Report Patient Name: JESS CALDERA Med. Rec. #: [id number] /Age/Gender: 1985 (Age: 34) / M Account: [id number] Location: [facility] MED/SURG Taken: 04/17/2020 Received: 04/19/2020 Reported: 04/20/2020 Physicians: El Whiteside MD Specimen(s) Received APPENDIX Clinical History Acute appendicitis Final Diagnosis APPENDIX, APPENDECTOMY: ACUTE APPENDICITIS AND PERIAPPENDICITIS. Electronically Signed Taryn Eddy M.D. Gross Description Received in formalin, labeled "appendix," is a 6.5 cm. in length vermiform appendix with a stapled margin of resection and abundant attached fat. The serosa is turner-webb with attached exudate. Sectioning reveals focal fecal material within the lumen. The wall of the appendix averages 0.1 cm. in thickness. [employer] sections are submitted in one cassette. /04/19/2020 saudi/04/19/2020
== END 2020-04-18 12:50 | disposition home or self-care (01) | DRG 343 ==
LOC: JER 12:28 → JERBED 19:38 → J7W 21:58
PROVIDERS: ADMIT Family Medicine; ATTEND Nurse Practitioner
PROC: 0DTJ4ZZ Resection of Appendix, Percutaneous Endoscopic Approach (ICD-10-PCS; principal; 2020-04-17 10:32)
DX: K35.80 Unspecified acute appendicitis (principal)
CPT/HCPCS: 36415; 71046-TC-FY; 74177-TC; 80048; 80053; 81003; 83690; 83735; 84100; 85025; 85027; 85610; 85730; 86850; 86900; 86901; 87086; 88304-TC; 93005; 93010; 94760; 99285-25; J0131; J1644; Q9967; U0003